=== PATIENT | male | born 1990 | race Caucasian/White ===

== ENCOUNTER 2020-01-31 10:42 | Emergency (ER) | payer OTHER ==
[2020-01-31] MEDS: Sodium Chloride 0.9% 10 ML Syringe FLUSH PRN (11:00)
[2020-01-31] MEDS: Aspirin 81 MG Tab.Chew PO ONE (11:00)
[2020-01-31] MEDS: Nitroglycerin 0.4 MG Tab.SL SL PRN (11:02)
--- NOTE | 2020-01-31 11:13 | CR ---
EXAMINATION: Chest 1V Frontal SEX: Male AGE: 29 years CLINICAL HISTORY: 29-year-old male emergency department complaining of CHEST PAIN. 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 1. Normal cardiac silhouette and pulmonary vascularity. No cephalization of flow, alveolar edema or dependent effusion. 2. No lung mass, hilar lymphadenopathy or focal lobar pneumonia. 3. No atelectasis/collapse. 4. Midline tracheal and proximal bronchial airways unremarkable. No other foreign bodies. 5. No pneumothorax or pneumomediastinum. CONCLUSION: No cardiopulmonary abnormality.
[2020-01-31] MEDS: Lactated Ringers 1,000 ML IV ONE (11:15)
[2020-01-31 11:18] LABS: ANION GAP 14.2; CHLORIDE,CL 102 mmol/L (101-111); SODIUM,NA 137 mmol/L (135-145)
[2020-01-31] MEDS: Potassium Chloride 10 MEQ Tab.ER PO ONE (12:30)
[2020-01-31] MEDS: Famotidine 20 MG/2 ML SDV IVPUSH ONE (12:30)
== END 2020-01-31 13:56 | disposition home or self-care (01) ==
LOC: DL.ED 10:42
DX: E87.6 Hypokalemia (principal); F10.10 Alcohol abuse, uncomplicated; Y90.0 Blood alcohol level of less than 20 mg/100 ml
CPT/HCPCS: 36415; 71045; 80053; 80305-QW; 80307; 81003; 83690; 83735; 84484; 85025; 85379; 93005; 96361; 96374; 99284-25; A9270-GY; J3490; J7120